=== PATIENT | female | born 1995 | race Caucasian/White ===

== ENCOUNTER 2021-03-30 09:44 | Emergency (ER) | payer OTHER, SELFPAY ==
--- NOTE | ~2021-03-30 | XR_ITS ---
EXAMINATION: XR knee RT min 4V DATE: 03/30/2021 10:58 INDICATION: Pain, swelling and bruising post fall onto the right knee TECHNIQUE: Anteroposterior, sunrise, oblique and crosstable lateral views of the right knee were obta ined COMPARISON: None. FINDINGS: Alignment of the right knee is normal. No fracture. No joint effusion/layering lipohemarthrosis. Sof t tissues are unremarkable. IMPRESSION: 1. Negative right knee radiographs. Reviewed, dictated and finalized at location [facility]
[2021-03-30 09:45] VITALS: BP 107/67; PULSE 86; RESP 18; TEMP 36.7; O2SAT 100
[2021-03-30] MEDS: KETOROLAC 30 MG/ML VIAL (*BKC) IV PUSH (11:16)
[2021-03-30 11:30] LABS: Basophils Percent Auto 0.3 % (0.2-1.2); Eosinophils Percent Auto 0.3 % (0-4.4); Hematocrit 31.5 % (37.0-47.0); Hemoglobin 9.9 g/dL (12.0-15.0); Immature Granulocyte Absolute 0.01 K/mm3 (0.00-0.031); Immature Granulocyte Percent A 0.2 % (0-0.5); Lymphocytes Absolute Auto 1.82 K/mm3 (0.9-3.2); Lymphocytes Percent Auto 28.6 % (18.3-44.2); Mean Corpuscular HGB Conc 31.4 g/dl (32-36); Mean Corpuscular Hemoglobin 24.5 pg (26-34); Mean Platelet Volume 9.4 fl (7.4-10.4); Monocytes Absolute Auto 0.4 K/mm3 (0.1-0.6); Monocytes Percent Auto 6.3 % (2.6-8.5); Neutrophils Absolute Auto 4.1 K/mm3 (1.3-6.7); Neutrophils Percent Auto 64.3 % (45.5-73.1); Platelet Count Result 239 k/mm3 (150-375); Red Blood Count 4.04 M/mm3 (4.2-5.4); Red Cell Distribution Width 13.5 % (11.5-14.5); White Blood Count 6.4 K/mm3 (4.5-10.0)
[2021-03-30 11:46] LABS: Alanine Aminotransferase 17 U/L (4-35); Albumin Level 3.6 g/dL (3.5-5.1); Alkaline Phosphatase 54 U/L (38-126); Anion Gap 8 mmol/L (8-16); Aspartate Amino Transferase 19 U/L (14-36); Bilirubin,Total 0.4 mg/dL (0.2-1.3); Blood Urea Nitrogen 13 mg/dL (7-17); Calcium 8.7 mg/dL (8.4-10.2); Carbon Dioxide 21 mmol/L (22-30); Chloride 108 mmol/L (98-107); Estimated CRCL calculation 89 ml/min; Estimated Glomerular Filt Rate > 60; Glucose 92 mg/dL (65-110); Potassium 3.5 mmol/L (3.4-5.0); Sodium 137 mmol/L (137-145)
--- NOTE | 2021-03-30 11:49 | ED.LOWEXIN ---
HPI - Extremity Injury (Lower) General Chief Complaint: Extremity Injury, Lower <Esthela Barragan APRN - Last Filed: 03/30/21 14:27> Stated Complaint: FALL, KNEE PAIN <Esthela Barragan APRN - Last Filed: 03/30/21 14:27> Time Seen by Provider: 03/30/21 09:56 <Esthela Barragan APRN - Last Filed: 03/30/21 14:27> Source: patient <Esthela Barragan APRN - Last Filed: 03/30/21 14:27> History of Present Illness HPI Narrative: 25 year old female presents today with complains of right knee pain and abdominal pain. Patient states she tripped today and fell landing on her right knee. Patient also states that her abdominal pain that she has been worked up for previously has been aggravated. Patient states she was told that she has gallbladder issues. Pain to right knee 10/10 and pain to abdomen rated 5/10. <Esthela Barragan APRN - Last Filed: 03/30/21 14:27> Related Data Home Medications: Home Medications Medication Instructions Recorded Confirmed No Home Medications 03/30/21 03/30/21 <Esthela Barragan APRN - Last Filed: 03/30/21 14:27> Allergies/Adverse Reactions: Allergies Allergy/AdvReac Type Severity Reaction Status Date / Time No Known Allergies Allergy Verified 03/30/21 09:48 <Esthela Barragan APRN - Last Filed: 03/30/21 14:27> Review of Systems Constitutional: Constitutional: Reports as per HPI, Denies chills, Denies fever(s) and Denies weakness <Esthela Barragna APRN - Last Filed: 03/30/21 14:27> Cardiovascular: Cardiovascular: Reports no additional cardiovascular complaints <Esthela Barragan APRN - Last Filed: 03/30/21 14:27> Respiratory: Respiratory: Reports no additional respiratory complaints <Esthela Barragan APRN - Last Filed: 03/30/21 14:27> Gastrointestinal: Gastrointestinal: Reports abdominal pain, Denies nausea and Denies vomiting <Esthela Barragan APRN - Last Filed: 03/30/21 14:27> Musculoskeletal: Musculoskeletal: Reports no additional musculoskeletal complaints <Esthela Barragan Last Filed: 03/30/21 14:27> Exam Const: General: no acute distress and alert <Esthela A. Winter, Last Filed: 03/30/21 14:27> Orientation/consciousness: patient oriented x3 <Esthela A. Winter, Last Filed: 03/30/21 14:27> HENMT: Head: normal to inspection <Esthela A. Winter, Last Filed: 03/30/21 14:27> Eyes: Conjunctivae: conjunctivae normal <Esthela A. Last Filed: 03/30/21 14:27> EOM: EOMs intact bilaterally <Esthela A. Last Filed: 03/30/21 14:27> Neck: Neck: normal visual inspection <Esthela A. Last Filed: 03/30/21 14:27> Chest: Chest palpation & inspection: normal inspection of the chest <Esthela A. Last Filed: 03/30/21 14:27> Resp: Effort & Inspection: normal respiratory effort <Esthela A. Last Filed: 03/30/21 14:27> Auscultation: clear to auscultation bilaterally <Esthela A. Last Filed: 03/30/21 14:27> Cardio: Rate: regular rate <Esthela A. Last Filed: 03/30/21 14:27> Rhythm: regular rhythm <Esthela A. Last Filed: 03/30/21 14:27> GI: GI Palp: Yes Soft to palpation, Yes Tenderness to palpation present (GI) (right upper quadrant) and No Rebound tenderness present <Esthela A. MayN Last Filed: 03/30/21 14:27> Auscultation: normal bowel sounds <Esthela A. Last Filed: 03/30/21 14:27> Skin: General skin exam: normal color <Esthela A. MayN Last Filed: 03/30/21 14:27> Neuro: General: patient oriented x3 <Esthela A. MayN Last Filed: 03/30/21 14:27> Extrem: General: normal to inspection <Esthela Barragan APRN - Last Filed: 03/30/21 14:27> Left lower extremity: normal capillary refill, no joint enlargement and knee Details: normal to inspection, tenderness and abnormal ROM Details: pain with active ROM Details: with extension and with flexion and pain with passive ROM Details: with extension and with flexion; no swelling a
--- NOTE | 2021-03-30 12:32 | PC.NURSE ---
patient walked without difficulty and in no distress down the sun and back. EDP aware.
[2021-03-30 13:43] VITALS: BP 115/76; PULSE 67; RESP 17; O2SAT 100
== END 2021-03-30 13:44 | disposition home or self-care (01) ==
PROVIDERS: Emergency Provider Nurse Practitioner Family
DX: M25.561 Pain in right knee (principal); W01.0XXA Fall on same level from slipping, tripping and stumbling without subsequent striking against object, initial encounter
CPT/HCPCS: 36415; 73564; 80053; 85025; 96374; 99284; J1885